=== PATIENT | male | born 1975 | race African-American/Black ===

== ENCOUNTER 2017-01-12 18:04 | Emergency (ER) | payer MEDICAID, OTHER ==
[~2017-01-12] VITALS: Ht 180.3 cm; Wt 104.3 kg
[~2017-01-12 18:04] MED LIST: CEPH500C2 PO
--- NOTE | 2017-01-12 18:49 | NUR ---
Patient discharged to home in stable condition. Written and verbal after care instructions given. Patient verbalizes understanding of instruction.
[2017-01-12] MEDS: HYDROCODONE/APAP 5/325MG 1 EACH TABLET PO STA (18:50)
--- NOTE | 2017-01-12 18:50 | NUR ---
THE PATIENT WAS GIVEN PO MEDICATION - THE PATIENT WAS DISCHARGE WITH FAMILY TO DRIVE HIM HOME AFTER PO MEDICATION WAS GIVEN BY DIANELYS LEPE
[2017-01-12] MEDS ORDERED: HYDROCODONE/APAP 5/325MG 1 EACH TABLET ONE (18:51)
--- NOTE | 2017-01-12 18:51 | NUR ---
Patient discharged to home in stable condition. Written and verbal after care instructions given. THE Patient verbalizes understanding of instruction.
[2017-01-12 18:52] VITALS: BP 135/75
== END 2017-01-12 18:53 | disposition home or self-care (01) ==
LOC: ER 18:07
DX: R51 Headache (principal); V43.92XA Unspecified car occupant injured in collision with other type car in traffic accident, initial encounter; Y93.89 Activity, other specified; Y92.488 Other paved roadways as the place of occurrence of the external cause; Y99.8 Other external cause status
CPT/HCPCS: A4606; Z7610